=== PATIENT | female | born 1985 | race Caucasian/White ===

== ENCOUNTER 2025-01-07 09:10 | Emergency (ER) | payer MEDICAID ==
[~2025-01-07] VITALS: Ht 152.4 cm; Wt 60.0 kg
[2025-01-07 09:18] VITALS: O2SAT 98
[2025-01-07] MEDS: ACETAMINOPHEN 325MG TABLET PO ONE (09:30)
[2025-01-07 11:17] LABS: BASOPHILS % 0.4 % (0.0-2.0); HEMATOCRIT. 34.8 % (36.0-48.0); HEMOGLOBIN. 11.7 g/dL (12.0-16.0); LYMPHOCYTES % 11.1 % (20.0-50.0); MEAN CORPUSCULAR HEMOGLOBIN 29.4 pg (28.0-32.0); MEAN CORPUSCULAR HGB CONC 33.7 g/dL (31.0-37.0); MEAN CORPUSCULAR VOLUME 87.3 fL (81.0-99.0); MEAN PLATELET VOLUME 7.6 fl (7.4-10.4); MONOCYTES % 11.2 % (2.0-8.0); NEUTROPHILS % 77.3 % (40.0-76.0); PLATELET 318 x1000/uL (130-400); RED BLOOD CELL COUNT 3.98 mill/uL (4.2-5.4); RED CELL DISTRIBUTION WIDTH 13.3 % (11.6-14.6); WHITE BLOOD COUNT 7.7 x1000/uL (4.5-11.0)
[2025-01-07 11:38] LABS: CHLORIDE 102 mEq/L (98-107); POTASSIUM 3.4 mEq/L (3.5-5.1); SODIUM 141 mEq/L (136-145)
[2025-01-07 11:39] LABS: CARBON DIOXIDE 28 mEq/L (21-32)
[2025-01-07 11:40] LABS: CALCIUM 8.4 mg/dL (8.7-10.4)
[2025-01-07 11:44] LABS: CREATININE 0.7 mg/dL (0.6-1.0); GLUCOSE 89 mg/dL (70-105); UREA NITROGEN BLOOD 14 mg/dL (9-23)
[2025-01-07 11:46] LABS: ALANINE AMINOTRANSFERASE 87 IU/L (10-49); ALBUMIN 4.1 g/dL (3.2-4.8); ASPARTATE AMINOTRANSFERASE 34 IU/L (<34)
[2025-01-07 11:47] LABS: BILIRUBIN TOTAL 0.5 mg/dL (0.1-1.0); PROTEIN TOTAL 6.8 g/dL (6.0-8.3)
[2025-01-07 12:16] LABS: RESPIRATORY SYNCYTIAL VIRUS Not Detected (Not Detectd)
[2025-01-07 12:17] LABS: INFLUENZA TYPE A Presumptive Negative (Pres. Neg.); INFLUENZA TYPE B Presumptive Negative (Pres. Neg.)
[2025-01-07] MEDS ORDERED: IBUP-2029 MT (12:27)
[2025-01-07 12:47] VITALS: BP 96/57; PULSE 86; RESP 16; TEMP 36.6; O2SAT 99
== END 2025-01-07 12:57 | disposition home or self-care (01) ==
LOC: ER 09:10
DX: B34.9 Viral infection, unspecified (principal); Z20.822 Contact with and (suspected) exposure to COVID-19
CPT/HCPCS: 36415; 71045; 80053; 81025; 85025; 87420; 87426; 87804; 99284